=== PATIENT | male | born 1965 | race Caucasian/White ===

== ENCOUNTER → 2020-05-25 | Day surgery (SDC) | payer OTHER ==
[~2020-05-25] MED LIST: AMLODIPINE BESY10 MG PO; ASPIRIN81 MG PO; CHLORTHALIDONE25 MG PO; CLONIDINE HCL0.1 MG PO; FENTANYL CITRATE/PF 100MCG/2 ML INJ ONE; GLIMEPIRIDE2 MG PO; GLUCAGON FOR INJ 1 MG VIAL ONE; GLYBURIDE5 MG PO; HYOSCYAMINE 0.125 MG TAB ONE; LIDOCAINE HCL 2% LOCAL INJ 5 ML SDV VIAL INJ ONE; METFORMIN HCL500 MG PO; MIDAZOLAM HCL 2 MG/2 ML VIAL ONE; MULTI-VITAMIN1 EACH PO; PROPOFOL IV EMULSION 10 MG/ML 20 ML VIAL ONE; RAMIPRIL5 MG PO; TRULICITY1.5 MG/0.5 SC
[2020-05-25 13:10] VITALS: BP 118/72
--- NOTE | 2020-05-25 13:41 | Operative Report ---
DATE OF PROCEDURE: 05/25/2020 SURGEON: Morales Evans MD PROCEDURE: Colonoscopy with polypectomy. INDICATIONS FOR COLONOSCOPY: Colorectal cancer screening. MEDICATIONS: The patient was done under MAC, please see anesthesiologist's note. PROCEDURE IN DETAIL: With the patient in the left lateral decubitus position, a flexible fiberoptic Olympus colonoscope was inserted into the rectum with ease and advanced all the way to the cecum. Prep overall was suboptimal with scattered retained stools in the colon. The scope was then withdrawn slowly, whatever was visualized the mucosa overlying the cecum appeared to be within normal limits. One minute polyp was cold biopsied from the ascending colon. An additional polyp in the transverse colon was hot biopsied. One polyp in the descending colon was hot snared. Two polyps in the sigmoid colon were hot snared, and one polyp was hot snared and one polyp was hot biopsied in the rectum. The scope was then retroflexed into the distal rectum and small internal hemorrhoids were noted, none of which was actively bleeding. The scope was then straightened out, it was subsequently withdrawn, and the patient tolerated the procedure well. IMPRESSION: 1. Suboptimal prep. 2. Ascending colon polyp, cold biopsied. 3. Transverse colon polyp, hot biopsied. 4. Descending colon polyp approximately 6 mm, hot snared. 5. Sigmoid colon polyps x2, hot snared. 6. Rectal polyp x2, one hot snared and one hot biopsied. 7. Internal hemorrhoids, none actively bleeding. PLAN: Follow up histology. Initiate high-fiber, low-fat diet. Initiate high-fiber supplement. Repeat colonoscopy later this year after a better prep to rule out synchronous colorectal neoplasm. Morales Evans MD [facility] [place]/[facility] /[id number] cc: Ralph Lau MD
== END | disposition home or self-care (01) ==
LOC: OR 10:00
PROVIDERS: ATTEND Internal Medicine Gastroenterology
DX: Z12.11 Encounter for screening for malignant neoplasm of colon (principal); D12.2 Benign neoplasm of ascending colon; D12.3 Benign neoplasm of transverse colon; D12.4 Benign neoplasm of descending colon; D12.5 Benign neoplasm of sigmoid colon; D12.8 Benign neoplasm of rectum; K64.8 Other hemorrhoids; E11.9 Type 2 diabetes mellitus without complications; I10 Essential (primary) hypertension; I49.3 Ventricular premature depolarization; Z01.810 Encounter for preprocedural cardiovascular examination; Z01.812 Encounter for preprocedural laboratory examination; Z11.59 Encounter for screening for other viral diseases; Z79.82 Long term (current) use of aspirin; Z79.84 Long term (current) use of oral hypoglycemic drugs
CPT/HCPCS: 36415; 45380; 45384; 45385; 82948; 93005; J1610; J2001; J2250; J2704; J3010; U0002; 45378

== ENCOUNTER → 2020-07-06 | Day surgery (SDC) | payer OTHER ==
[~2020-07-06] MED LIST changes: -GLUCAGON FOR INJ 1 MG VIAL ONE; +KETAMINE HCL INJ 50 MG/ML 10 ML VIAL ONE
[2020-07-06 12:33] VITALS: BP 114/69
--- NOTE | 2020-07-06 12:45 | Operative Report ---
DATE OF PROCEDURE: 07/06/2020 SURGEON: Morales Evans MD PROCEDURE: Colonoscopy with polypectomy. INDICATIONS FOR EGD: History of colon polyps, suboptimal prep on recent colonoscopy. MEDICATIONS: The patient was done under MAC, please see anesthesiologist's note. PROCEDURE IN DETAIL: With the patient in left lateral decubitus position, a flexible fiberoptic Olympus colonoscope was inserted into the rectum with ease and advanced all the way to the cecum. Mucosa overlying the cecum appeared to be within normal limits. Two polyps were cold snared from the proximal ascending colon. The rest of the ascending, transverse, and descending appeared to be within normal limits. Three polyps were hot biopsied from the sigmoid colon. The rectum appeared to be within normal limits. The scope was then retroflexed into the distal rectum and small internal hemorrhoids were noted, none of which was actively bleeding. The scope was then straightened out, it was subsequently withdrawn. The patient tolerated the procedure well. IMPRESSION: 1. Ascending colon polyps x2, cold snared. 2. Sigmoid colon polyps x3, hot biopsied. 3. Internal hemorrhoids, none actively bleeding. PLAN: Follow up histology. Initiate high-fiber, low-fat diet. Initiate high-fiber supplement. The patient might benefit from a followup colonoscopy in 3 years. Morales Evans MD [facility] [place] /[id number] cc: Ralph Lau MD
== END | disposition home or self-care (01) ==
LOC: OR 07:51
PROVIDERS: ATTEND Internal Medicine Gastroenterology
DX: Z09 Encounter for follow-up examination after completed treatment for conditions other than malignant neoplasm (principal); D12.2 Benign neoplasm of ascending colon; K64.8 Other hemorrhoids; I10 Essential (primary) hypertension; E11.9 Type 2 diabetes mellitus without complications; Z01.812 Encounter for preprocedural laboratory examination; Z11.59 Encounter for screening for other viral diseases; Z79.84 Long term (current) use of oral hypoglycemic drugs; Z79.82 Long term (current) use of aspirin; Z68.41 Body mass index [BMI] 40.0-44.9, adult
CPT/HCPCS: 45384; 45385; J2001; J2704; U0002; 45378; J2250; J3010